=== PATIENT | female | born 1950 | race Caucasian/White ===

== ENCOUNTER 2019-01-24 03:29 | Emergency (ER) | payer MEDICARE, OTHER ==
[~2019-01-24] VITALS: Ht 160 cm; Wt 76.2 kg
[2019-01-24] MEDS ORDERED: NS IV 1000 ML 1,000 ML IV STA ×2 (03:43→05:08)
[2019-01-24] MEDS ORDERED: OSELTAMIVIR 75 MG (TAMIFLU) CAPSULE PO STA (03:44)
[2019-01-24] MEDS ORDERED: VANCOMYCIN INJECTION 1,500 MG in NS IV 500 ML 500 ML IV STA (03:44)
[2019-01-24] MEDS ORDERED: CEFEPIME INJECTION 2,000 MG in WATER (STERILE) FOR INJECTION 20 ML IV STA (03:44)
--- NOTE | 2019-01-24 03:52 | ED General ---
General Chief Complaint: Fever-Adult/Adol Stated Complaint: RAPID HR LOW O2 Source of Information: Patient, Family History of Present Illness Date Seen by Provider: Jan 24, 2019 Time Seen by Provider: 03:36 This is a 68-year-old female with a history of breast cancer on oral chemotherapy, atrial fibrillation, here for generalized weakness since waking up this morning. A fever is incidentally identified upon arrival, patient has not noticed any focal symptoms like cough, vomiting, diarrhea, dysuria, rash, headache. Family has noted however that patient's oxygen saturation at home was in the upper 70s prior to arrival. It is in the 80s on room air at this time without there having been a specific intervention. She's not had focal weakness, numbness, or tingling. No chest pain or shortness of breath. Family points out that patient is being stoic, patient agrees that she does not want to be in the hospital at all, and for this reason history is somewhat limited, patient family also do not know her medication names. Allergies and Home Medications Allergies Coded Allergies: No Known Drug Allergies (Unverified , 01/24/19) Patient Home Medication List Home Medication List Reviewed: Yes Review of Systems Review of Systems Constitutional: see HPI EENTM: no symptoms reported Respiratory: no symptoms reported Cardiovascular: no symptoms reported Gastrointestinal: no symptoms reported Genitourinary: no symptoms reported Musculoskeletal: no symptoms reported Skin: no symptoms reported Psychiatric/Neurological: No Symptoms Reported Hematologic/Lymphatic: No Symptoms Reported Immunological/Allergic: no symptoms reported Past Dvzfgbu-Ahbshl-Dgzkkl Hx Patient Social History Recent Foreign Travel: No Contact w/Someone Who Travel: No Physical Exam-Suspected Sepsis Physical Exam Vital Signs Vital Signs - First Documented Capillary Refill : Height, Weight, BMI Height: '" Weight: lbs. oz. 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 as Tested; No Abnormal Cerebellar Tests Skin: warm/dry Focused Exam Lactate Level 01/24/19 03:45: Lactic Acid Level 0.60 Lactic Acid Level Laboratory Tests Test 01/24/19 03:45 Lactic Acid Level 0.60 MMOL/L (0.50-2.00) Progress/Results/Core Measures Suspected Sepsis SIRS Temperature: Pulse: Respiratory Rate: Laboratory Tests 01/24/19 03:45: White Blood Count 2.0L Blood Pressure / Mean: 01/24/19 03:45: Lactic Acid Level 0.60 Laboratory Tests 01/24/19 03:45: Creatinine 2.53H, INR Comment 2.2H, Platelet Count 245, Total Bilirubin 0.3 Results/Orders Lab Results Laboratory Tests Test 01/24/19 03:45 Range/Units White Blood Count 2.0 L 4.3-11.0 10^3/uL Red Blood Count 3.26 L 4.35-5.85 10^6/uL Hemoglobin 8.2 L 11.5-16.0 G/DL Hematocrit 27 L 35-52 % Mean Corpuscular Volume 82 80-99 FL Mean Corpuscular Hemoglobin 25 25-34 PG Mean Corpuscular Hemoglobin Concent 31 L 32-36 G/DL Red Cell Distribution Width 16.4 H 10.0-14.5 % Platelet Count 245 130-400 10^3/uL Mean Platelet Volume 11.0 H 7.4-10.4 FL Neutrophils (%) (Auto) 1 L 42-75 % Lymphocytes (%) (Auto) 45 H 12-44 % Monocytes (%) (Auto) 50 H 0-12 % Eosinophils (%) (Auto) 1 0-10 % Basophils (%) (Auto) 1 0-10 % Neutrophils # (Auto) 0.0 L 1.8-7.8 X 10^3 Lymphocytes # (Auto) 0.9 L 1.0-4.0 X 10^3 Monocytes # (Auto) 1.0 0.0-1.0 X 10^3 Eosinophils # (Auto) 0.0 0.0-0.3 10^3/uL Basophils # (Auto) 0.0 0.0-0.1 10^3/uL Neutrophils % (Manual) 0 % Lymphocytes % (Manual) 32 % Monocytes % (Manual) 49 % Eosinophils % (Manual) 5 % Basophils % (Manual) 2 % Metamyelocytes % 1 % Myelocytes % 2 % Band Neutrophils 1 % Atypical Lymphocytes 8 % Anisocytosis SLIGHT Prothrombin Time 24.3 H 12.2-14.7 SEC INR Comment 2.2 H 0.8-1.4 Activated Partial Thromboplast Time 55 H 24-35 SEC Sodium Level 138 135-145 MMOL/L Potassium Level 3.8 3.6-5.0 MMOL/L Chloride Level 93 L 98-107 MMOL/L Carbon Dioxide Level 25 21-32 MMOL/L Anion Gap 20 H 5-14 MMOL/L Blood Urea Nitrogen 37 H 7-18 MG/DL Creatinine 2.53 H 0.60-1.30 MG/DL Estimat Glomerular Filtration Rate 19 BUN/Creatinine Ratio 15 Glucose Level 209 H 70-105 MG/DL Lactic Acid Level 0.60 0.50-2.00 MMOL/L Calcium Level 9.2 8.5-10.1 MG/DL Corrected Calcium 9.8 8.5-10.1 MG/DL Total Bilirubin 0.3 0.1-1.0 MG/DL Aspartate Amino Transf (AST/SGOT) 17 5-34 U/L Alanine Aminotransferase (ALT/SGPT) 12 0-55 U/L Alkaline Phosphatase 98 40-136 U/L Troponin T 20 H <=10 NG/L Pro-B-Type Natriuretic Peptide 5601.0 H <75.0 PG/ML Total Protein 6.9 6.4-8.2 GM/DL Albumin 3.3 3.2-4.5 GM/DL My Orders Orders - VERONIKA LEWIS DO Cbc With Automated Diff (01/24/19 03:40) Comprehensive Metabolic Panel (01/24/19 03:40) Blood Culture (01/24/19 03:40) Sputum Culture (01/24/19 03:40) Urinalysis (01/24/19 03:40) Urine Culture (01/24/19 03:40) Protime With Inr (01/24/19 03:40) Partial Thromboplastin Time (01/24/19 03:40) Chest 1 View Ap/Pa Only (01/24/19 03:40) Saline Lock/Iv-Start (01/24/19 03:40) Saline Lock/Iv-Start (01/24/19 03:40) Vital Signs Adult Sepsis Patie Q15M (01/24/19 03:40) O2 (01/24/19 03:40) Remove Rings In Anticipation O (01/24/19 03:40) Lactic Acid Analyzer (01/24/19 03:40) Troponin T (01/24/19 03:43) Probnp Fs (01/24/19 03:43) Ekg Tracing (01/24/19 03:43) Ns Iv 1000 Ml (Sodium Chloride 0.9%) (01/24/19 03:43) Vancomycin Injection (Vancomycin Injecti (01/24/19 03:44) Cefepime Injection (Maxipime Injection) (01/24/19 03:44) Oseltamivir 75 Mg Capsule (Tamiflu 75 (01/24/19 03:44) Manual Differential (01/24/19 03:45) Vancomycin Injection (Vancomycin Injecti (01/24/19 05:04) Ns Iv 1000 Ml (Sodium Chloride 0.9%) (01/24/19 05:08) Vital Signs/I&O 01/24/19 01/24/19 03:38 03:38 Temp 103.5 Pulse 112 Resp 20 B/P (MAP) 117/67 (84) Pulse Ox 91 88 O2 Delivery Nasal Cannula Nasal Cannula O2 Flow Rate 3.00 3.00 Capillary Refill : Progress Note #1: Progress Note Patient has incidental fever. We will treat with acetaminophen and she has not had a dose within the last 6 hours at least. We will carefully fluid resuscitate as she has a history of CHF and her oxygen saturation is already in the 80s on room air however oxygen saturation does improve with nasal cannula oxygen into the mid 90s, and on physical exam she is not obviously volume overloaded currently. We will treat with broad-spectrum antibiotics including vancomycin given she has an indwelling port, and will cover with empiric tamiflu. We will check a lactic acid level, urinalysis and culture, blood cultures before antibiotics, labs, chest x-ray. Anticipate admission. Progress Note #2: Progress Note Patient is neutropenic. Lactate is normal however we can give a second liter bolus as she does not appear to be in acute pulmonary edema. At approximately 5 :10 AM I spoke with the transfer center at where patient has been admitted in the past. We await a call back. Vitals improving, HR between 95 and 105, SpO2 97% on NC. ECG EKG : Comment O3 51: Atrial fibrillation rate of 94. Low voltage and nonspecific T-wave flattening in aVL. Delayed precordial R-wave progression. Diagnostic Imaging Diagonstic Imaging: Xray Comments EP interpretation: Trachea is midline, there is cardiomegaly. Right costophrenic angle is sharp, left costophrenic angle is obscured with possible effusion or infiltrate present on the left side. There is a port present with tip in the right atrium. No pneumothoraces. There are clips present bilaterally in the soft tissues. Reviewed: Reviewed by Me Critical Care Note Critical Care Start Time: 03:52 Stop Time: 04:27 Total Time (minutes) 35 Progress Critical care time is exclusive of time spent on separately billable procedures. Departure Impression Primary Impression: Hypoxia Additional Impressions: Neutropenic fever Renal insufficiency Elevated brain natriuretic peptide (BNP) level Elevated troponin Anemia Disposition: 02 XFER SHT-TRM HOSP Condition: Stable (guarded) Transfer Time Spoke to Accepting Phy: 05:40 Transfer Facility: [facility], accepted by Dr Wesley Jo Method of Transfer: EMS Departure-Patient Inst. Referrals: NO,LOCAL PHYSICIAN (PCP) Primary Care Physician VERONIKA LEWIS DO Jan 24, 2019 03:52
[2019-01-24 04:05] LABS: HEMATOCRIT 27 % (35-52); HEMOGLOBIN 8.2 G/DL (11.5-16.0); LYMPHOCYTES % (AUTO) 45 % (12-44); MEAN CORPUSCULAR HEMOGLOBIN 25 PG (25-34); MEAN CORPUSCULAR HGB CONC 31 G/DL (32-36); MEAN CORPUSCULAR VOLUME 82 FL (80-99); MONOCYTES % (AUTO) 50 % (0-12); NEUTROPHILS % (AUTO) 1 % (42-75); PLATELET COUNT 245 10^3/uL (130-400); RED CELL DISTRIBUTION WIDTH 16.4 % (10.0-14.5)
[2019-01-24 04:06] LABS: BASOPHILS % (AUTO) 1 % (0-10); EOSINOPHILS % (AUTO) 1 % (0-10); LYMPHOCYTES # (AUTO) 0.9 X 10^3 (1.0-4.0)
[2019-01-24 04:28] LABS: INR 2.2 (0.8-1.4); PROTHROMBIN TIME PATIENT 24.3 SEC (12.2-14.7)
[2019-01-24 04:36] LABS: CALCIUM 9.2 MG/DL (8.5-10.1); CREATININE SERUM 2.53 MG/DL (0.60-1.30); POTASSIUM 3.8 MMOL/L (3.6-5.0)
[2019-01-24 04:37] LABS: BILIRUBIN,TOTAL 0.3 MG/DL (0.1-1.0)
[2019-01-24 04:38] LABS: ALBUMIN 3.3 GM/DL (3.2-4.5); TOTAL PROTEIN 6.9 GM/DL (6.4-8.2)
[2019-01-24 05:02] LABS: BAND NEUTROPHILS 1 %; LYMPHOCYTES % (MANUAL) 32 %; MONOCYTES % (MANUAL) 49 %; NEUTROPHILS % (MANUAL) 0 %
[2019-01-24 05:03] LABS: ANISOCYTOSIS SLIGHT; ATYPICAL LYMPHOCYTES 8 %; BASOPHILS % (MANUAL) 2 %; EOSINOPHILS % (MANUAL) 5 %; METAMYELOCYTES % 1 %; MYELOCYTES % 2 %
[2019-01-24] MEDS ORDERED: VANCOMYCIN 1000 MG/VIAL ONE (05:04)
[2019-01-24 06:09] VITALS: BP 132/52
[2019-01-24 06:35] LABS: BILIRUBIN,URINE NEGATIVE (NEGATIVE); CLARITY,URINE CLEAR; COLOR,URINE YELLOW; GLUCOSE, URINE (UA) 1+ (NEGATIVE); KETONES,URINE NEGATIVE (NEGATIVE); LEUKOCYTE ESTERASE ,URINE NEGATIVE (NEGATIVE); NITRITE,URINE NEGATIVE (NEGATIVE); PH,URINE 7.5 (5-9); PROTEIN,URINE 1+ (NEGATIVE); UROBILINOGEN,URINE 0.2 MG/DL (NORMAL)
[2019-01-24 06:36] LABS: BACTERIA,URINE NEGATIVE /HPF; RBC,URINE 0-2 /HPF; SQUAMOUS EPITHELIAL CELL,UR 0-2 /HPF
--- NOTE | 2019-01-24 06:42 | Diagnostic Imaging Report ---
INDICATION: Hypoxia, cough COMPARISON: None FINDINGS: Single view of the chest demonstrates cardiac enlargement without overt pulmonary edema. There is small effusion and atelectasis in the left base. Right lung is clear. The Port-A-Cath is in good position. No pneumothorax is seen. IMPRESSION: 1. Cardiac enlargement without pulmonary edema 2. Small effusion and atelectasis in the left base. Followup recommended. Dictated by: Dictated on workstation # [id number]
--- NOTE | 2019-01-24 07:00 | NUR ---
Report from Nicole SALCEDO, pt ready for transfer, await EMS. [facility] report will be here shortly to transfer.
[2019-01-24 07:30] VITALS: BP 127/49
--- NOTE | 2019-01-24 07:30 | NUR ---
[facility] depart at this time.
--- NOTE | 2019-01-24 08:00 | NUR ---
Called report to [facility]. ETA updated.
== END 2019-01-24 07:30 | disposition short-term general hospital (02) ==
LOC: ER FS 03:34
DX: R09.02 Hypoxemia (principal); D70.9 Neutropenia, unspecified; N28.9 Disorder of kidney and ureter, unspecified; R79.89 Other specified abnormal findings of blood chemistry; D64.9 Anemia, unspecified; I48.91 Unspecified atrial fibrillation; C50.919 Malignant neoplasm of unspecified site of unspecified female breast; Z99.81 Dependence on supplemental oxygen
CPT/HCPCS: 36415; 36556; 71045; 80053; 81000; 83605; 83880; 84484; 85007; 85027; 85610; 85730; 87040; 87088; 93005

== ENCOUNTER 2019-02-28 18:26 | Emergency (ER) | payer MEDICARE, OTHER ==
[~2019-02-28] VITALS: Ht 160 cm; Wt 73.9 kg
[2019-02-28] MEDS ORDERED: NS IV 500 ML 500 ML IV ONE (19:08)
--- NOTE | 2019-02-28 19:17 | ED General ---
General Chief Complaint: Respiratory Problems Stated Complaint: DIZZINESS/SOB/WEAKNESS Nursing Triage Note: Woke up this morning at 10 a.m. and since that time has been short of breath with exertion and dizzy. States she had similar symptoms in January and had fluid on her lungs and around her heart. Does have hx of CHF and afib. Is on chemo and had last treatment 2 weeks ago. Nursing Sepsis Screen: No Definite Risk Source of Information: Patient, Family Exam Limitations: No Limitations History of Present Illness Date Seen by Provider: Feb 28, 2019 Time Seen by Provider: 18:45 Initial Comments Pt to the ER by private conveyance with waking this AM with SOA, malaise, tired and weak. No vertigo or near syncope. She noted that yesterday she was late taking her meds and her A. Fib was labile 90-130 bpm. Today she felt tired. a few weeks ago she had an occult infection with low WBC and was sent to [facility] where her PCP is and was given a shot to inc her WBC. She is on [facility] from [facility] for left breast Ca. while they did not find a source she completed a course of abx and felt better and went home. Plan was to get a repeat lab study done today outpt for her PCP. She did not feel up to it today but later went in to urgent care and was redirected to the ER. She has exertional Dyspnea mild to mod but no CP, M/V/Fever, chills, diarrhea, dysuria. Allergies and Home Medications Allergies Coded Allergies: No Known Drug Allergies (Unverified , 02/28/19) Patient Home Medication List Home Medication List Reviewed: Yes Review of Systems Review of Systems Constitutional: No chills, No diaphoresis; dizziness (non vertiginous and non syncopal, Just Lightheaded); No fever; malaise, weakness EENTM: No ear discharge, No ear pain Respiratory: No cough, No phlegm; short of breath (exertional); No wheezing Cardiovascular: No chest pain, No palpitations, No syncope Gastrointestinal: No abdominal pain, No constipation Genitourinary: No discharge, No dysuria Musculoskeletal: No back pain, No joint pain Psychiatric/Neurological: Denies Anxiety, Denies Depressed Hematologic/Lymphatic: See HPI, Anemia Past Dhmbten-Gkmttm-Rngueq Hx Patient Social History Alcohol Use: Denies Use Recreational Drug Use: No Smoking Status: Never a Smoker 2nd Hand Smoke Exposure: No Recent Foreign Travel: No Contact w/Someone Who Travel: No Recent Infectious Disease Expo: No Recent Hopitalizations: No Physical Abuse: No Sexual Abuse: No Mistreated: No Seasonal Allergies Seasonal Allergies: No Past Medical History Surgeries: Yes (mastectomy) Respiratory: No Cardiac: Yes (CHF; ) Atrial Fibrillation, Irregular Heartbeat Neurological: No HEENT: No Cancer: No Psychosocial: No Integumentary: No Physical Exam Vital Signs Vital Signs - First Documented 02/28/19 19:02 Temp 97.5 Pulse 102 Resp 20 B/P (MAP) 141/64 (89) Pulse Ox 100 Capillary Refill : Less Than 3 Seconds Height, Weight, BMI Height: 5'3.00" Weight: 163lbs. oz. 73.553488az; BMI Method:Stated General Appearance: No Apparent Distress, WD/WN Eyes: Bilateral Eye Normal Inspection, Bilateral Eye PERRL, Bilateral Eye EOMI HEENT: PERRL/EOMI, TMs Normal, Normal ENT Inspection, Pharynx Normal, Moist Mucous Membranes, Other (dentures upper and lowers) Neck: Full Range of Motion, Normal Inspection, Non Tender, Supple Respiratory: Chest Non Tender, Lungs Clear, Normal Breath Sounds, No Accessory Muscle Use, No Respiratory Distress, Other (left breasts surgically removed) Cardiovascular: Regular Rate, Rhythm, No Edema, Normal Peripheral Pulses Gastrointestinal: Normal Bowel Sounds, No Organomegaly, Non Tender, Soft Extremity: Normal Capillary Refill, Normal Inspection, Normal Range of Motion, Non Tender, No Calf Tenderness, No Pedal Edema Neurologic/Psychiatric: Alert, Oriented x3, No Motor/Sensory Deficits, Other ( normal gait) Skin: Normal Color, Warm/Dry Progress/Results/Core Measures Suspected Sepsis Recent Fever Within 48 Hours: No Infection Criteria Present: None New/Unexplained Altered Menta: No Sepsis Screen: No Definite Risk SIRS Temperature:97.5 Pulse: 102 Respiratory Rate: 20 Laboratory Tests 02/28/19 19:37: White Blood Count 8.3 Blood Pressure 141 /64 Mean: 89 Laboratory Tests 02/28/19 19:37: Creatinine 1.65H, Platelet Count 131, Total Bilirubin 0.3 Results/Orders Lab Results Laboratory Tests Test 02/28/19 19:37 02/28/19 20:20 Range/Units White Blood Count 8.3 4.3-11.0 10^3/uL Red Blood Count 2.90 L 4.35-5.85 10^6/uL Hemoglobin 7.5 L 11.5-16.0 G/DL Hematocrit 24 L 35-52 % Mean Corpuscular Volume 84 80-99 FL Mean Corpuscular Hemoglobin 26 25-34 PG Mean Corpuscular Hemoglobin Concent 31 L 32-36 G/DL Red Cell Distribution Width 18.1 H 10.0-14.5 % Platelet Count 131 130-400 10^3/uL Mean Platelet Volume 11.4 H 7.4-10.4 FL Neutrophils (%) (Auto) 62 42-75 % Lymphocytes (%) (Auto) 24 12-44 % Monocytes (%) (Auto) 11 0-12 % Eosinophils (%) (Auto) 2 0-10 % Basophils (%) (Auto) 0 0-10 % Neutrophils # (Auto) 5.2 1.8-7.8 X 10^3 Lymphocytes # (Auto) 2.0 1.0-4.0 X 10^3 Monocytes # (Auto) 0.9 0.0-1.0 X 10^3 Eosinophils # (Auto) 0.2 0.0-0.3 10^3/uL Basophils # (Auto) 0.0 0.0-0.1 10^3/uL D-Dimer 0.69 H 0.00-0.49 UG/ML Sodium Level 142 135-145 MMOL/L Potassium Level 3.1 L 3.6-5.0 MMOL/L Chloride Level 96 L 98-107 MMOL/L Carbon Dioxide Level 29 21-32 MMOL/L Anion Gap 17 H 5-14 MMOL/L Blood Urea Nitrogen 49 H 7-18 MG/DL Creatinine 1.65 H 0.60-1.30 MG/DL Estimat Glomerular Filtration Rate 31 BUN/Creatinine Ratio 30 Glucose Level 155 H 70-105 MG/DL Calcium Level 8.7 8.5-10.1 MG/DL Corrected Calcium 8.9 8.5-10.1 MG/DL Magnesium Level 2.0 1.8-2.4 MG/DL Total Bilirubin 0.3 0.1-1.0 MG/DL Aspartate Amino Transf (AST/SGOT) 23 5-34 U/L Alanine Aminotransferase (ALT/SGPT) 12 0-55 U/L Alkaline Phosphatase 81 40-136 U/L Troponin T 13 H <=10 NG/L Pro-B-Type Natriuretic Peptide 1282.0 H <75.0 PG/ML Total Protein 6.7 6.4-8.2 GM/DL Albumin 3.7 3.2-4.5 GM/DL Urine Color YELLOW Urine Clarity CLEAR Urine pH 6.5 5-9 Urine Specific [place] <1.005 1.016-1.022 Urine Protein NEGATIVE NEGATIVE Urine Glucose (UA) NEGATIVE NEGATIVE Urine Ketones NEGATIVE NEGATIVE Urine Nitrite NEGATIVE NEGATIVE Urine Bilirubin NEGATIVE NEGATIVE Urine Urobilinogen 0.2 NORMAL MG/DL Urine Leukocyte Esterase NEGATIVE NEGATIVE Urine RBC (Auto) TRACE H NEGATIVE Urine RBC NONE /HPF Urine WBC NONE /HPF Urine Squamous Epithelial Cells 0-2 /HPF Urine Crystals NONE /LPF Urine Bacteria NONE /HPF Urine Casts PRESENT /LPF Urine Hyaline Casts 0-2 H /LPF Urine Mucus NEGATIVE /LPF Urine Culture Indicated CULTURE PENDING My Orders Orders - GLO COREY Ekg Tracing (02/28/19 18:30) Continuous Ekg Monitoring (02/28/19 18:30) Cbc With Automated Diff (02/28/19 19:08) Ed Iv/Invasive Line Start (02/28/19:08) Ns Iv 500 Ml (Sodium Chloride 0.9%) (02/28/19 19:08) Ua Culture If Indicated (02/28/19 19:08) Chest Pa/Lat (2 View) (02/28/19 19:08) Probnp Fs (02/28/19 19:08) Orthostatic Vital Signs (Adult (02/28/19 19:12) Urine Culture (02/28/19 19:45) Fibrin Degradation Products (02/28/19 19:48) Comprehensive Metabolic Panel (02/28/19 19:37) Magnesium (02/28/19 19:37) Troponin T (02/28/19 19:37) Troponin T (02/28/19 21:30) Medications Given in ED Current Medications Medications Dose Ordered Sig/Puma Route Start Time Stop Time Status Last Admin Dose Admin Sodium Chloride 500 ml @ 0 mls/hr Q0M ONCE IV 02/28/19 19:08 02/28/19 19:12 DC 02/28/19 19:48 999 MLS/HR Vital Signs/I&O 02/28/19 19:02 Temp 97.5 Pulse 102 Resp 20 B/P (MAP) 141/64 (89) Pulse Ox 100 Capillary Refill : Less Than 3 Seconds Blood Pressure Mean: 89 Progress Note : Time: 19:41 Progress Note We will obtain a CBC, CMP and chest x-ray. Her throat looks fine so I don't think a rapid strep or influenza are indicated that she's not having any story symptoms. Her shortness of breath could be due to an anemia. Last time she was in this ER before being shipped to her white count was 2.0 and hemoglobin is 8.2 with a 245,000 platelet count. She has chronic kidney dysfunction stage IV based on her previous labs and her BNP was 5600 and her troponin T was barely elevated at 20. We'll repeat a BNP over she does not have any JVD, wet sounding lungs or pedal edema of any significance. Plan to culture the urine. We'll obtain orthostatics and start with a half liter saline as she does appear to be marginally dry on clinical exam. She uses Lasix to control her CHF. I only have one to point for her BNP and no echocardiogram or mention of ejection fraction. Wells criteria for ulnar embolism is 2.5 points which is moderate risk. We can get a d-dimer age adjusted to 0.7 her below however the patient's chronic kidney disease prevents her from doing CT angiogram. She is not having any chest pain and her heart rate is running in the 90-110 range because of her atrial fibrillation So her well's score estimation of pulmonary embolism risk may be artificially inflated. ECG Initial ECG Impression Date: Feb 28, 2019 Initial ECG Impression Time: 18:37 Initial ECG Rate: 98 Initial ECG Rhythm: A Fib/Flutter Initial ECG Intervals: QT (477) Initial ECG Impression: Atrial Fibrillation Initial ECG Comparisson: Unchanged Comment No significant ST elevation or depression. Diagnostic Imaging Diagonstic Imaging: Xray Plain Films/CT/US/NM/MRI: chest (2v) Comments NAME: AYE [facility] REC#: [id number] PT STATUS: REG ER : 1950 PHYSICIAN: GLO COREY MD ADMIT DATE: 02/28/19/ER FS Signed Date of Exam:02/28/19 CHEST PA/LAT (2 VIEW) INDICATION: Shortness of breath and dizziness. COMPARISON: Comparison is made with a prior study from January 24, 2019. FINDINGS: Enlargement of the cardiac silhouette again demonstrated and not significantly changed allowing for differences in AP and PA technique. There is a right internal jugular port, and there are surgical clips in the left axilla. The lungs demonstrate no focal alveolar consolidation or evidence of a significant effusion. There is no pneumothorax. No acute or suspicious osseous abnormality evident. IMPRESSION: 1. Enlarged cardiac silhouette without radiographic evidence of current failure. No focal alveolar consolidation or significant effusion demonstrated. Dictated by: Dictated on workstation # [id number] Dict: 02/28/191947 Trans: 02/28/191951 [id number] Interpreted by: NAPOLEON BRUNNER MD Electronically signed by: NAPOLEON BRUNNER MD 02/28/191951 Reviewed: Reviewed by Me Departure Impression Primary Impression: Anemia Qualified Codes: D64.9 - Anemia, unspecified Additional Impressions: Atrial fibrillation, chronic History of breast cancer in female Disposition: 01 HOME, SELF-CARE Condition: Stable Departure-Patient Inst. Decision time for Depature: 22:35 Referrals: NO,LOCAL PHYSICIAN (PCP/Family) Primary Care Physician Patient Instructions: Normocytic Normochromic Anemia (DC) Add. Discharge Instructions: Follow-up this week with your cancer doctor to discuss your anemia. Your white cell count is 8 which is good however your borderline needing a transfusion for your low hemoglobin of 7.5. A repeat test next week with private be in order as long as you're symptoms do not significantly worsen. If you begin to have severe chest pain, rapid heart rate or other worrisome symptoms return to the ER nearest you for further workup. All discharge instructions reviewed with patient and/or family. Voiced understanding. GLO COREY Feb 28, 2019 19:17
--- NOTE | 2019-02-28 19:54 | Diagnostic Imaging Report ---
INDICATION: Shortness of breath and dizziness. COMPARISON: Comparison is made with a prior study from January 24, 2019. FINDINGS: Enlargement of the cardiac silhouette again demonstrated and not significantly changed allowing for differences in AP and PA technique. There is a right internal jugular port, and there are surgical clips in the left axilla. The lungs demonstrate no focal alveolar consolidation or evidence of a significant effusion. There is no pneumothorax. No acute or suspicious osseous abnormality evident. IMPRESSION: 1. Enlarged cardiac silhouette without radiographic evidence of current failure. No focal alveolar consolidation or significant effusion demonstrated. Dictated by: Dictated on workstation # [id number]
[2019-02-28 20:13] LABS: WHITE BLOOD COUNT 8.3 10^3/uL (4.3-11.0)
[2019-02-28 20:14] LABS: BASOPHILS % (AUTO) 0 % (0-10); EOSINOPHILS # (AUTO) 0.2 10^3/uL (0.0-0.3); EOSINOPHILS % (AUTO) 2 % (0-10); HEMATOCRIT 24 % (35-52); HEMOGLOBIN 7.5 G/DL (11.5-16.0); LYMPHOCYTES % (AUTO) 24 % (12-44); MEAN CORPUSCULAR HEMOGLOBIN 26 PG (25-34); MEAN CORPUSCULAR HGB CONC 31 G/DL (32-36); MEAN CORPUSCULAR VOLUME 84 FL (80-99); MEAN PLATELET VOLUME 11.4 FL (7.4-10.4); MONOCYTES # (AUTO) 0.9 X 10^3 (0.0-1.0); MONOCYTES % (AUTO) 11 % (0-12); NEUTROPHILS # (AUTO) 5.2 X 10^3 (1.8-7.8); NEUTROPHILS % (AUTO) 62 % (42-75); PLATELET COUNT 131 10^3/uL (130-400); RED CELL DISTRIBUTION WIDTH 18.1 % (10.0-14.5)
[2019-02-28 20:15] VITALS: BP_SYST 111; BP_SYST 125; BP_SYST 130; BP_DIAS 45; BP_DIAS 50; BP_DIAS 60
[2019-02-28 20:42] LABS: POTASSIUM 3.1 MMOL/L (3.6-5.0)
[2019-02-28 20:43] LABS: ALBUMIN 3.7 GM/DL (3.2-4.5); BILIRUBIN,TOTAL 0.3 MG/DL (0.1-1.0); CALCIUM 8.7 MG/DL (8.5-10.1); CREATININE SERUM 1.65 MG/DL (0.60-1.30); TOTAL PROTEIN 6.7 GM/DL (6.4-8.2)
[2019-02-28 22:24] LABS: CLARITY,URINE CLEAR; COLOR,URINE YELLOW; GLUCOSE, URINE (UA) NEGATIVE (NEGATIVE); KETONES,URINE NEGATIVE (NEGATIVE); NITRITE,URINE NEGATIVE (NEGATIVE); PH,URINE 6.5 (5-9); PROTEIN,URINE NEGATIVE (NEGATIVE)
[2019-02-28 22:25] LABS: BILIRUBIN,URINE NEGATIVE (NEGATIVE); HYALINE CASTS, URINE 0-2 /LPF; LEUKOCYTE ESTERASE ,URINE NEGATIVE (NEGATIVE); SQUAMOUS EPITHELIAL CELL,UR 0-2 /HPF; UROBILINOGEN,URINE 0.2 MG/DL (NORMAL)
[2019-02-28] MEDS ORDERED: HEParin (CENTRAL IV FLUSH) 500 UNIT/5 ML SYR ONE (22:43)
[2019-02-28 22:56] VITALS: BP 124/60
[2019-02-28] MEDS ORDERED: HEParin (CENTRAL IV FLUSH) 500 UNIT/5 ML SYR IV ONE (23:00)
== END 2019-02-28 22:56 | disposition home or self-care (01) ==
LOC: EDUNIT# 18:26 → ER FS 18:29
DX: D64.9 Anemia, unspecified (principal); I48.91 Unspecified atrial fibrillation; I50.9 Heart failure, unspecified; Z85.3 Personal history of malignant neoplasm of breast
CPT/HCPCS: 36415; 71046; 80053; 81000; 83735; 83880; 84484; 85025; 85379; 87088; 93005; 96374

== ENCOUNTER → 2019-06-21 | Outpatient (CLI) | payer MEDICARE, OTHER ==
--- NOTE | 2019-06-21 13:56 | Diagnostic Imaging Report ---
PROCEDURE: CT urinary tract, rule out kidney stone. TECHNIQUE: Multiple contiguous axial images were obtained through the abdomen and pelvis without the use of intravenous contrast. Auto Exposure Controls were utilized during the CT exam to meet ALARA standards for radiation dose reduction. INDICATION: Dysuria. COMPARISON: No prior studies are available for comparison. FINDINGS: The heart is enlarged. There is a small to moderate pericardial effusion. There are also small right and trace left pleural effusions. There appears to be some atelectasis or scarring in the left lower lobe. The liver and gallbladder are unremarkable. No liver mass is seen. There is no biliary ductal dilatation. The pancreas and spleen are unremarkable. No adrenal mass is detected. No definite renal calculus or hydronephrosis is detected. The aorta is nonaneurysmal. The bladder does show some generalized wall thickening which can be seen with cystitis. No bladder gas is identified. No ureteral dilatation or ureteral calculi are identified. The bowel loops are of normal caliber. There is no obstruction. The appendix is unremarkable. There is no ascites. The uterus is unremarkable. The bony structures demonstrate a fracture of the right pubic body with some callus formation although the fracture line does remain visible. There may be healed bilateral sacral alar insufficiency fractures. IMPRESSION: 1. Cardiomegaly with moderate pericardial effusion and bilateral pleural effusions, right greater. 2. No evidence of urinary tract calculi or obstruction. There is moderate bladder wall thickening present. While this could be in part secondary to incomplete distention, the possibility of cystitis cannot be excluded. 3. Healing pelvic fractures. Dictated by: Dictated on workstation # [id number]
== END ==
LOC: RAD FS 12:36
PROVIDERS: ATTEND Nurse Practitioner Family
DX: N32.89 Other specified disorders of bladder (principal); S32.9XXD Fracture of unspecified parts of lumbosacral spine and pelvis, subsequent encounter for fracture with routine healing; I51.7 Cardiomegaly; I31.3 Pericardial effusion (noninflammatory); J90 Pleural effusion, not elsewhere classified
CPT/HCPCS: 74176

== ENCOUNTER 2020-02-20 13:59 | Emergency (ER) | payer MEDICARE, OTHER ==
[~2020-02-20] VITALS: Ht 167.7 cm; Wt 91.0 kg
--- NOTE | 2020-02-20 14:02 | NUR ---
Pt arrived POV from her PCP. Pt lethargic, pale and diaphoretic. Pt taken to rm 6 via wc.
--- NOTE | 2020-02-20 14:09 | ED GI ---
General Chief Complaint: Abdominal/GI Problems Stated Complaint: VOMITING; DIARRHEA; LEG CRAMPS Exam Limitations: No Limitations History of Present Illness Date Seen by Provider: Feb 20, 2020 Time Seen by Provider: 14:08 Initial Comments 69-year-old female presents with vomiting diarrhea leg cramps. Patient presented to her primary care provider. Due to current covid cautions, they went to check her fever in the car. There they noted she was extremely sick afebrile so they sent her to the ER. Upon arrival to the ER, patient was decreased responsive but would answer questions appropriately. Patient was complaining of back pain. She also reports that she has a history of breast cancer. Subjective report of fever. No other history of present illness was available Allergies and Home Medications Allergies Coded Allergies: No Known Drug Allergies (Unverified , 02/28/19) Patient Home Medication List Home Medication List Reviewed: Yes Review of Systems Review of Systems Constitutional: see HPI Gastrointestinal: See HPI Past Sgcntpc-Aiihim-Nfcnmf Hx Past Med/Social Hx: Reviewed Nursing Past Med/Soc Hx Patient Social History 2nd Hand Smoke Exposure: No Recent Foreign Travel: No Contact w/Someone Who Travel: No Recent Hopitalizations: No Seasonal Allergies Seasonal Allergies: No Past Medical History Surgeries: Yes (mastectomy) Respiratory: No Cardiac: Yes (CHF; ) Atrial Fibrillation, Irregular Heartbeat Neurological: No HEENT: No Cancer: No Psychosocial: No Integumentary: No Physical Exam Vital Signs Capillary Refill : Height/Weight/BMI Height: 5'3.00" Weight: 163lbs. oz. 73.769358fo; BMI Method:Stated General Appearance: other (lethargic but responds to questions appropriately ) Respiratory: lungs clear, normal breath sounds Cardiovascular: bradycardia (extreme bradycardia) Gastrointestinal: soft Extremities: normal range of motion Neurologic/Psychiatric: oriented x 3 Skin: normal color Focused Exam Lactate Level 02/20/20 14:30: Lactic Acid Level 7.29*H Lactic Acid Level Laboratory Tests Test 02/20/20 14:30 Lactic Acid Level 7.29 MMOL/L (0.50-2.00) *H Progress/Results/Core Measures Results/Orders Lab Results Laboratory Tests Test 02/20/20 14:18 02/20/20 14:30 02/20/20 14:42 Range/Units White Blood Count 13.8 H 4.3-11.0 10^3/uL Red Blood Count 5.07 4.35-5.85 10^6/uL Hemoglobin 12.6 11.5-16.0 G/DL Hematocrit 40 35-52 % Mean Corpuscular Volume 80 80-99 FL Mean Corpuscular Hemoglobin 25 25-34 PG Mean Corpuscular Hemoglobin Concent 31 L 32-36 G/DL Red Cell Distribution Width 16.3 H 10.0-14.5 % Platelet Count 140 130-400 10^3/uL Mean Platelet Volume 10.7 H 7.4-10.4 FL Neutrophils (%) (Auto) 59 42-75 % Lymphocytes (%) (Auto) 28 12-44 % Monocytes (%) (Auto) 12 0-12 % Eosinophils (%) (Auto) 1 0-10 % Basophils (%) (Auto) 1 0-10 % Neutrophils # (Auto) 8.1 H 1.8-7.8 X 10^3 Lymphocytes # (Auto) 3.9 1.0-4.0 X 10^3 Monocytes # (Auto) 1.6 H 0.0-1.0 X 10^3 Eosinophils # (Auto) 0.1 0.0-0.3 10^3/uL Basophils # (Auto) 0.1 0.0-0.1 10^3/uL Prothrombin Time 30.7 H 12.2-14.7 SEC INR Comment 2.8 H 0.8-1.4 Activated Partial Thromboplast Time 48 H 24-35 SEC Sodium Level 140 135-145 MMOL/L Potassium Level 8.2 *H 3.6-5.0 MMOL/L Chloride Level 107 98-107 MMOL/L Carbon Dioxide Level 15 L 21-32 MMOL/L Anion Gap 18 H 5-14 MMOL/L Blood Urea Nitrogen 43 H 7-18 MG/DL Creatinine 3.63 H 0.60-1.30 MG/DL Estimat Glomerular Filtration Rate 12 BUN/Creatinine Ratio 12 Glucose Level 161 H 70-105 MG/DL Calcium Level 8.8 8.5-10.1 MG/DL Corrected Calcium 9.0 8.5-10.1 MG/DL Total Bilirubin 0.4 0.1-1.0 MG/DL Aspartate Amino Transf (AST/SGOT) 40 H 5-34 U/L Alanine Aminotransferase (ALT/SGPT) 30 0-55 U/L Alkaline Phosphatase 98 40-136 U/L Troponin I < 0.30 <0.30 NG/ML Total Protein 7.2 6.4-8.2 GM/DL Albumin 3.8 3.2-4.5 GM/DL Lactic Acid Level 7.29 *H 0.50-2.00 MMOL/L Urine Color YELLOW Urine Clarity CLEAR Urine pH 6.0 5-9 Urine Specific [place] >1.030 1.016-1.022 Urine Protein 2+ H NEGATIVE Urine Glucose (UA) NEGATIVE NEGATIVE Urine Ketones NEGATIVE NEGATIVE Urine Nitrite NEGATIVE NEGATIVE Urine Bilirubin NEGATIVE NEGATIVE Urine Urobilinogen 0.2 < = 1.0 MG/DL Urine Leukocyte Esterase NEGATIVE NEGATIVE Urine RBC (Auto) TRACE H NEGATIVE Urine RBC 2-5 H /HPF Urine WBC RARE /HPF Urine Squamous Epithelial Cells 2-5 /HPF Urine Crystals PRESENT H /LPF Urine Amorphous Sediment MOD DEBBIE URATES H /LPF Urine Bacteria NONE /HPF Urine Casts PRESENT /LPF Urine Hyaline Casts 2-5 H /LPF Urine Mucus NEGATIVE /LPF Urine Culture Indicated NO My Orders Orders - MORRELL,BRIE L DO Cbc With Automated Diff (02/20/20 14:12) Comprehensive Metabolic Panel (02/20/20 14:12) Blood Culture (02/20/20 14:12) Urinalysis (02/20/20 14:12) Urine Culture (02/20/20 14:12) Protime With Inr (02/20/20 14:12) Partial Thromboplastin Time (02/20/20 14:12) Ed Iv/Invasive Line Start (02/20/20 14:12) Vital Signs Adult Sepsis Patie Q15M (02/20/20 14:12) O2 (02/20/20 14:12) Remove Rings In Anticipation O (02/20/20 14:12) Lactic Acid Analyzer (02/20/20 14:12) Ns Iv 1000 Ml (Sodium Chloride 0.9%) (02/20/20 14:12) Cefepime Injection (Maxipime Injection) (02/20/20 14:15) Acute Abd Series (02/20/20 14:12) Ekg Tracing (02/20/20 14:15) Troponin I Fs (02/20/20 14:15) Fentanyl Injection (Sublimaze Injection (4/6/20 14:19) Lorazepam Injection (Ativan Injection) (02/20/20 14:20) Calcium Chloride 10% Injection (Calcium (02/20/20 15:15) Accucheck Stat ONCE (02/20/20 15:03) Insulin (Regular) Human (Humulin R (Per (02/20/20 15:15) D50w (Emergency) Syringe (Dextrose 50% 5 (02/20/20 15:15) D5 1/2 Ns 1000 Ml Iv Solution (Dextrose (02/20/20 15:15) Progress Progress Note : Time: 15:11 Progress Note Patient was extremely bradycardic with heart rates 10-20. Patient was given 0.5 mg atropine, an amp of calcium chloride, an amp of sodium bicarbonate followed by an additional amp of calcium chloride and sodium bicarbonate. Patient was initially placed in the heart rate of the 70s with external pacer. Patient then spontaneously converted to atrial fibrillation heart rate in the 60s. Patient's heart rate had a second episode of bradycardia that improved with the second calcium chloride, she was then given 10 units IV insulin with one amp of D50, D5 half-normal running 150 miles an hour in addition to her other normal saline. She was given an additional third amp of sodium bicarbonate. Patient's heart rate then stabilized once again into the atrial fib heart rate around 100 with good blood pressures in the 140s pulse oxes in the upper 90s. Patient was much more alert and awake. Patient will be transferred to [facility] by helicopter with accepting doctor CONOR Belcher Departure Impression Primary Impression: Hyperkalemia Additional Impressions: Bradycardia Nausea & vomiting Qualified Codes: R11.2 - Nausea with vomiting, unspecified Atrial fibrillation Qualified Codes: I48.91 - Unspecified atrial fibrillation Disposition: T-[facility] Condition: Improved Transfer Transfer Reason: Exceeds level of care Time Spoke to Accepting Phy: 15:00 Transfer Facility: [facility] Method of Transfer: Air Departure-Patient Inst. Referrals: DEANNA FARLEY DO (PCP/Family) Primary Care Physician BRIE MORRELL DO Feb 20, 2020 14:08
[2020-02-20] MEDS ORDERED: NS IV 1000 ML 1,000 ML IV SCH (14:12)
[2020-02-20] MEDS ORDERED: CEFEPIME INJECTION 1,000 MG in WATER (STERILE) FOR INJECTION 10 ML IV ONE (14:15)
[2020-02-20] MEDS ORDERED: fentaNYL INJECTION 100 MCG/2 ML AMP ONE (14:19)
[2020-02-20] MEDS ORDERED: LORazepam INJ 2 MG/ML (ATIVAN) VIAL ONE (14:20)
--- OUTSIDE RECORDS SUMMARY | 2020-02-20 14:47 | XMS REPORT | Continuity of Care Document ---
Author Organization Unknown Address Unknown Phone Unavailable Allergies Active Description Code Type Severity Reaction Onset Reported/Identified Relationship to Patient Clinical Status Yes No Known Drug Allergies [id number] Drug Allergy Unknown N/A 02/28/2019 Medications There is no data. 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 9 ANEMIA, UNSPECIFIED 01/24/2019 DEBBIE MUKHERJEE, VERONIKA T Ot D70. 9 NEUTROPENIA, UNSPECIFIED 01/24/2019 DEBBIE MUKHERJEE, VERONIKA T Ot I48. 91 UNSPECIFIED ATRIAL FIBRILLATION 01/24/2019 DEBBIE MUKHERJEE, VERONIKA T Ot N28. 9 DISORDER OF KIDNEY AND URETER, UNSPECIFI 01/24/2019 DEBBIE MUKHERJEE, VERONIKA T Ot R09. 02 HYPOXEMIA 01/24/2019 DEBBIE MUKHERJEE, VERONIKA T Ot R53. 1 WEAKNESS 01/24/2019 DEBBIE MUKHERJEE, VERONIKA T Ot R79. 89 OTHER SPECIFIED ABNORMAL FINDINGS OF BLO 01/24/2019 DEBBIE MUKHERJEE, VERONIKA T Ot Z99. 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 9 ANEMIA, UNSPECIFIED 01/26/2019 DEBBIE MUKHERJEE, VERONIKA T Ot D70. 9 NEUTROPENIA, UNSPECIFIED 01/26/2019 DEBBIE MUKHERJEE, VERONIKA T Ot I48. 91 UNSPECIFIED ATRIAL FIBRILLATION 01/26/2019 DEBBIE MUKHERJEE, VERONIKA T Ot N28. 9 DISORDER OF KIDNEY AND URETER, UNSPECIFI 01/26/2019 DEBBIE MUKHERJEE, VERONIKA T Ot R09. 02 HYPOXEMIA 01/26/2019 DEBBIE MUKHERJEE, VERONIKA T Ot R53. 1 WEAKNESS 01/26/2019 DEBBIE MUKHERJEE, VERONIKA T Ot R79. 89 OTHER SPECIFIED ABNORMAL FINDINGS OF BLO 01/26/2019 DEBBIE MUKHERJEE, VERONIKA T Ot Z99. 81 DEPENDENCE ON SUPPLEMENTAL OXYGEN 02/28/2019 LEORA KINCAID, GLO J Ot D64. 9 ANEMIA, UNSPECIFIED 02/28/2019 LEORA KINCAID, GLO J Ot I48. 91 UNSPECIFIED ATRIAL FIBRILLATION 02/28/2019 LEORA KINCAID, GLO J Ot I50. 9 HEART FAILURE, UNSPECIFIED 02/28/2019 LEORA KINCAID, GLO J Ot R42 DIZZINESS AND GIDDINESS 02/28/2019 LEORA KINCAID, GLO J Ot Z85. 3 PERSONAL HISTORY OF MALIGNANT NEOPLASM O 03/02/2019 LEORA KINCAID, GLO J Ot D64. 9 ANEMIA, UNSPECIFIED 03/02/2019 LEORA KINCAID, GLO J Ot I48. 91 UNSPECIFIED ATRIAL FIBRILLATION 03/02/2019 LEORA KINCAID, GLO J Ot I50. 9 HEART FAILURE, UNSPECIFIED 03/02/2019 LEORA KINCAID, GLO J Ot R42 DIZZINESS AND GIDDINESS 03/02/2019 LEORA KINCAID, GLO J Ot Z85. 3 PERSONAL HISTORY OF MALIGNANT NEOPLASM O 06/27/2019 LESLIE VO MAMMOGRAPHY TECHNICIAN Ot I31. 3 PERICARDIAL EFFUSION (NONINFLAMMATORY) 06/27/2019 LESLIE VO MAMMOGRAPHY TECHNICIAN Ot I51. 7 CARDIOMEGALY 06/27/2019 LESLIE VO MAMMOGRAPHY TECHNICIAN Ot J90 PLEURAL EFFUSION, NOT ELSEWHERE CLASSIFI 06/27/2019 LESLIE VO MAMMOGRAPHY TECHNICIAN Ot N32. 89 OTHER SPECIFIED DISORDERS OF BLADDER 06/27/2019 LESLIE VO MAMMOGRAPHY TECHNICIAN Ot S32.9XXD FX UNSP PARTS OF LUMBOSACR SPIN PELV, 06/28/2019 LESLIE VO MAMMOGRAPHY TECHNICIAN Ot I31. 3 PERICARDIAL EFFUSION (NONINFLAMMATORY) 06/28/2019 LESLIE VO MAMMOGRAPHY TECHNICIAN Ot I51. 7 CARDIOMEGALY 06/28/2019 LESLIE VO MAMMOGRAPHY TECHNICIAN Ot J90 PLEURAL EFFUSION, NOT ELSEWHERE CLASSIFI 06/28/2019 LESLIE VO N MAMMOGRAPHY TECHNICIAN Ot N32. 89 OTHER SPECIFIED DISORDERS OF BLADDER 06/28/2019 LESLIE VO MAMMOGRAPHY TECHNICIAN Ot S32.9XXD FX UNSP PARTS OF LUMBOSACR SPIN PELV, Procedures There is no data. Results Test Result Range Complete blood count (CBC) with automate d white blood cell (WBC) differential - 01/24/19 03:45 Blood leukocytes automated count (number/volume) 2.0 10*3/uL 4.3-11.0 Blood erythrocytes automated count (number/volume) 3.26 10*6/uL 4.35-5.85 Venous blood hemoglobin measurement (mass/volume) 8.2 g/dL 11.5-16.0 Blood hematocrit (volume fraction) 27 % 35-52 Automated erythrocyte mean corpuscular volume 82 [ foz_us] 80-99 Automated erythrocyte mean corpuscular h emoglobin (mass per erythrocyte) 25 pg 25-34 Automated erythrocyte mean corpuscular h emoglobin concentration measurement (mass/volume) 31 g/dL 32-36 Automated erythrocyte distribution width ratio 16. 4 % 10.0- 14.5 Automated blood platelet count (count/volume) 245 10*3/uL 130-400 Automated blood platelet mean volume measurement 11.0 [foz_us] 7.4-10.4 Automated blood neutrophils/100 leukocytes 1 % 42-75 Automated blood lymphocytes/100 leukocytes 45 % 12-44 Blood monocytes/100 leukocytes 50 % 0-12 Automated blood eosinophils/100 leukocytes 1 % 0-10 Automated blood basophils/100 leukocytes 1 % 0-10 Blood neutrophils automated count (number/volume) 0.0 10*3 1.8-7.8 Blood lymphocytes automated count (number/volume) 0.9 10*3 1.0-4.0 Blood monocytes automated count (number/volume) 1. 0 10*3 0.0-1.0 Automated eosinophil count 0.0 10*3/uL 0 .0-0.3 Automated blood basophil count (count/volume) 0.0 10*3/uL 0.0-0.1 PT panel in platelet poor plasma by coag ulation assay - 01/24/19 03:45 Prothrombin time (PT) in platelet poor plasma by coagu lation assay 24.3 s 12.2-14.7 INR in platelet poor plasma or blood by coagulation as say 2.2 0.8-1.4 Activated partial thromboplastin time (a PTT) in platelet poor plasma bycoagulation assay - 01/24/19 03:45 Activated partial thromboplastin time (a PTT) in platelet poor plasma bycoagulation assay 55 s 24-35 Blood lactic acid measurement (moles/vol ume) - 01/24/19 03:45 Blood lactic acid measurement (moles/volume) 0.60 mmol/L 0.50-2.00 Comprehensive metabolic panel - 01/24/19 03:45 Serum or plasma sodium measurement (moles/volume) 138 mmol/L 135-145 Serum or plasma potassium measurement (moles/volume) 3.8 mmol/L 3.6-5.0 Serum or plasma chloride measurement (moles/volume) 93 mmol/L 98-107 Carbon dioxide 25 mmol/L 21-32 Serum or plasma anion gap determination (moles/volume) 20 mmol/L 5-14 Serum or plasma urea nitrogen measurement (mass/volume ) 37 mg/dL 7-18 Serum or plasma creatinine measurement (mass/volume) 2.53 mg/dL 0.60-1.30 Serum or plasma urea nitrogen/creatinine mass ratio 15 NRG Serum or plasma creatinine measurement w ith calculation of estimated glomerular filtration rate 19 NRG Serum or plasma glucose measurement (mass/volume) 209 mg/dL 70-105 Serum or plasma calcium measurement (mass/volume) 9.2 mg/dL 8.5-10.1 Serum or plasma total bilirubin measurement (mass/volu me) 0.3 mg/dL 0.1-1.0 Serum or plasma alkaline phosphatase kesha surement (enzymatic activity/volume) 98 U/L 40-136 Serum or plasma aspartate aminotransfera se measurement (enzymatic activity/volume) 17 U/L 5-34 Serum or plasma alanine aminotransferase measurement (enzymatic activity/volume) 12 U/L 0-55 Serum or plasma protein measurement (mass/volume) 6.9 g/dL 6.4-8.2 Serum or plasma albumin measurement (mass/volume) 3.3 g/dL 3.2-4.5 CALCIUM CORRECTED 9.8 mg/dL 8.5-10.1 TROPONIN T - 01/24/19 03:45 TROPONIN T 20 % <=10 PROBNP FS - 01/24/19 03:45 PROBNP FS 5601.0 pg/mL <75.0 Blood manual differential performed dete ction - 01/24/19 03:45 Blood monocytes/100 leukocytes 49 % NRG Manual blood segmented neutrophils/100 leukocytes 0 % NRG Blood band neutrophils/100 leukocytes 1 % NRG Manual blood lymphocytes/100 leukocytes 32 % NRG Manual eosinophils/100 leukocytes in nose 5 % NRG Manual blood basophils/100 leukocytes 2 % NRG Manual blood lymphocytes variant/100 leukocytes 8 % NRG Blood anisocytosis detection by light microscopy S LIGHT NRG Manual blood metamyelocytes/100 leukocytes 1 % NRG Manual blood myelocytes/100 leukocytes 2 % NRG Bacterial blood culture - 01/24/19 03:45 Bacterial blood culture NG NRG Bacterial blood culture - 01/24/19 04:20 Bacterial blood culture NG NRG Complete urinalysis with reflex to cultu re - 01/24/19 06:00 Urine color determination YELLOW NRG Urine clarity determination CLEAR NR G Urine pH measurement by test strip 7.5 5-9 Specific gravity of urine by test strip 1.010 1.016-1.022 Urine protein assay by test strip, semi-quantitative 1+ NEGATIVE Urine glucose detection by automated test strip 1+ NEGATIVE Erythrocytes detection in urine sediment by light micr oscopy 1+ NEGATIVE Urine ketones detection by automated test strip NE GATIVE NEGATIVE Urine nitrite detection by test strip NEGATIVE NEGATIVE Urine total bilirubin detection by test strip NEGA TIVE NEGATIVE Urine urobilinogen measurement by automated test strip (mass/volume) 0.2 mg/dL NORMAL Urine leukocyte esterase detection by dipstick NEG ATIVE NEGATIVE Automated urine sediment erythrocyte cou nt by microscopy (number/high power field) [HPF] NRG Automated urine sediment leukocyte count by microscopy (number/high power field) NONE NRG Bacteria detection in urine sediment by light microsco py NEGATIVE NRG Squamous epithelial cells detection in u rine sediment by light microscopy 0-2 NRG Crystals detection in urine sediment by light microsco py NONE NRG Casts detection in urine sediment by light microscopy NONE NRG Mucus detection in urine sediment by light microscopy NONE NRG Complete urinalysis with reflex to culture NO NRG Bacterial urine culture - 01/24/19 06:00 Bacterial urine culture NG NRG Complete blood count (CBC) with automate d white blood cell (WBC) differential - 02/28/19 19:37 Blood leukocytes automated count (number/volume) 8.3 10*3/uL 4.3-11.0 Blood erythrocytes automated count (number/volume) 2.90 10*6/uL 4.35-5.85 Venous blood hemoglobin measurement (mass/volume) 7.5 g/dL 11.5-16.0 Blood hematocrit (volume fraction) 24 % 35-52 Automated erythrocyte mean corpuscular volume 84 [ foz_us] 80-99 Automated erythrocyte mean corpuscular h emoglobin (mass per erythrocyte) 26 pg 25-34 Automated erythrocyte mean corpuscular h emoglobin concentration measurement (mass/volume) 31 g/dL 32-36 Automated erythrocyte distribution width ratio 18. 1 % 10.0- 14.5 Automated blood platelet count (count/volume) 131 10*3/uL 130-400 Automated blood platelet mean volume measurement 11.4 [foz_us] 7.4-10.4 Automated blood neutrophils/100 leukocytes 62 % 42-75 Automated blood lymphocytes/100 leukocytes 24 % 12-44 Blood monocytes/100 leukocytes 11 % 0-12 Automated blood eosinophils/100 leukocytes 2 % 0-10 Automated blood basophils/100 leukocytes 0 % 0-10 Blood neutrophils automated count (number/volume) 5.2 10*3 1.8-7.8 Blood lymphocytes automated count (number/volume) 2.0 10*3 1.0-4.0 Blood monocytes automated count (number/volume) 0. 9 10*3 0.0-1.0 Automated eosinophil count 0.2 10*3/uL 0 .0-0.3 Automated blood basophil count (count/volume) 0.0 10*3/uL 0.0-0.1 Fibrin D-dimer FEU measurement in platel et poor plasma (mass/volume) - 02/28/19 19:37 Fibrin D-dimer FEU measurement in platelet poor plasma (mass/volume) 0.69 ug/mL 0.00-0.49 PROBNP FS - 02/28/19 19:37 PROBNP FS 1282.0 pg/mL <75.0 Comprehensive metabolic panel - 02/28/19 19:37 Serum or plasma sodium measurement (moles/volume) 142 mmol/L 135-145 Serum or plasma potassium measurement (moles/volume) 3.1 mmol/L 3.6-5.0 Serum or plasma chloride measurement (moles/volume) 96 mmol/L 98-107 Carbon dioxide 29 mmol/L 21-32 Serum or plasma anion gap determination (moles/volume) 17 mmol/L 5-14 Serum or plasma urea nitrogen measurement (mass/volume ) 49 mg/dL 7-18 Serum or plasma creatinine measurement (mass/volume) 1.65 mg/dL 0.60-1.30 Serum or plasma urea nitrogen/creatinine mass ratio 30 NRG Serum or plasma creatinine measurement w ith calculation of estimated glomerular filtration rate 31 NRG Serum or plasma glucose measurement (mass/volume) 155 mg/dL 70-105 Serum or plasma calcium measurement (mass/volume) 8.7 mg/dL 8.5-10.1 Serum or plasma total bilirubin measurement (mass/volu me) 0.3 mg/dL 0.1-1.0 Serum or plasma alkaline phosphatase kesha surement (enzymatic activity/volume) 81 U/L 40-136 Serum or plasma aspartate aminotransfera se measurement (enzymatic activity/volume) 23 U/L 5-34 Serum or plasma alanine aminotransferase measurement (enzymatic activity/volume) 12 U/L 0-55 Serum or plasma protein measurement (mass/volume) 6.7 g/dL 6.4-8.2 Serum or plasma albumin measurement (mass/volume) 3.7 g/dL 3.2-4.5 CALCIUM CORRECTED 8.9 mg/dL 8.5-10.1 Magnesium - 02/28/19 19:37 Magnesium 2.0 mg/dL 1.8-2.4 TROPONIN T - 02/28/19 19:37 TROPONIN T 13 % <=10 TROPONIN T - 02/28/19 19:37 TROPONIN T 13 % <=10 Complete urinalysis with reflex to cultu re - 02/28/19 20:20 Urine color determination YELLOW NRG Urine clarity determination CLEAR NR G Urine pH measurement by test strip 6.5 5-9 Specific gravity of urine by test strip < 1.016-1.022 Urine protein assay by test strip, semi-quantitative NEGATIVE NEGATIVE Urine glucose detection by automated test strip NE GATIVE NEGATIVE Erythrocytes detection in urine sediment by light micr oscopy TRACE NEGATIVE Urine ketones detection by automated test strip NE GATIVE NEGATIVE Urine nitrite detection by test strip NEGATIVE NEGATIVE Urine total bilirubin detection by test strip NEGA TIVE NEGATIVE Urine urobilinogen measurement by automated test strip (mass/volume) 0.2 mg/dL NORMAL Urine leukocyte esterase detection by dipstick NEG ATIVE NEGATIVE Automated urine sediment erythrocyte cou nt by microscopy (number/high power field) NONE NRG Automated urine sediment leukocyte count by microscopy (number/high power field) NONE NRG Bacteria detection in urine sediment by light microsco py NONE NRG Squamous epithelial cells detection in u rine sediment by light microscopy 0-2 NRG Crystals detection in urine sediment by light microsco py NONE NRG Casts detection in urine sediment by light microscopy PRESENT NRG Mucus detection in urine sediment by light microscopy NEGATIVE NRG Complete urinalysis with reflex to culture CULTURE PENDING NRG Hyaline casts detection in urine sediment by light lucas roscopy 0-2 NRG Bacterial urine culture - 02/28/19 20:20 Bacterial urine culture [id number] NRG COLONY COUNT <10,000 NRG FTX;REPORTABLE NO FURTHER TESTING NRG FREE TEXT ENTRY 2 ORGANISM ID REPORT RCD 03/02 14:0 5 NRG FREE TEXT ENTRY 3 SEE COMMENTS NRG Encounters ACCT No. Visit Date/Time Discharge Status Pt. Type Provider Facility Loc./Unit Complaint [id number] 06/21/2019 12:36:00 23:59:59 CLS Outpatient LESLIE VO APRN [facility] RAD FS CALCULUS OF KIDNEY [id number] 02/28/2019 18:29:00 019 22:56:00 DIS Emergency GLO COREY MD [facility] ER FS DIZZINESS/SOB/WEAKNESS [id number] 01/24/2019 03:34:00 019 07:30:00 DIS Emergency VERONIKA LEWIS DO [facility] ER FS RAPID HR LOW O2 [id number] 02/20/2020 14:03:[address] Emergency BRIE MORRELL DO [facility] ER FS VOMITING; DIARRHEA; LEG CRAM PS
[2020-02-20 14:51] LABS: BASOPHILS % (AUTO) 1 % (0-10); EOSINOPHILS % (AUTO) 1 % (0-10); HEMATOCRIT 40 % (35-52); HEMOGLOBIN 12.6 G/DL (11.5-16.0); LYMPHOCYTES % (AUTO) 28 % (12-44); MEAN CORPUSCULAR HEMOGLOBIN 25 PG (25-34); MEAN CORPUSCULAR HGB CONC 31 G/DL (32-36); MEAN CORPUSCULAR VOLUME 80 FL (80-99); MEAN PLATELET VOLUME 10.7 FL (7.4-10.4); MONOCYTES % (AUTO) 12 % (0-12); NEUTROPHILS % (AUTO) 59 % (42-75); PLATELET COUNT 140 10^3/uL (130-400); RED CELL DISTRIBUTION WIDTH 16.3 % (10.0-14.5); WHITE BLOOD COUNT 13.8 10^3/uL (4.3-11.0)
[2020-02-20 14:52] LABS: BASOPHILS # (AUTO) 0.1 10^3/uL (0.0-0.1); EOSINOPHILS # (AUTO) 0.1 10^3/uL (0.0-0.3); LYMPHOCYTES # (AUTO) 3.9 X 10^3 (1.0-4.0); MONOCYTES # (AUTO) 1.6 X 10^3 (0.0-1.0); NEUTROPHILS # (AUTO) 8.1 X 10^3 (1.8-7.8)
[2020-02-20 14:57] LABS: CLARITY,URINE CLEAR; COLOR,URINE YELLOW
[2020-02-20 14:58] LABS: AMORPHOUS SEDIMENT,UR MOD AMOR URATES /LPF; BILIRUBIN,URINE NEGATIVE (NEGATIVE); GLUCOSE, URINE (UA) NEGATIVE (NEGATIVE); KETONES,URINE NEGATIVE (NEGATIVE); LEUKOCYTE ESTERASE ,URINE NEGATIVE (NEGATIVE); NITRITE,URINE NEGATIVE (NEGATIVE); PROTEIN,URINE 2+ (NEGATIVE); WBC,URINE RARE /HPF
[2020-02-20 15:00] LABS: INR 2.8 (0.8-1.4); PROTHROMBIN TIME PATIENT 30.7 SEC (12.2-14.7)
[2020-02-20 15:06] LABS: SODIUM 140 MMOL/L (135-145)
[2020-02-20 15:07] LABS: BILIRUBIN,TOTAL 0.4 MG/DL (0.1-1.0); BUN/CREATININE RATIO 12; CARBON DIOXIDE 15 MMOL/L (21-32); CHLORIDE 107 MMOL/L (98-107); CREATININE SERUM 3.63 MG/DL (0.60-1.30); GFR ESTIMATED 12; GLUCOSE 161 MG/DL (70-105); POTASSIUM 8.2 MMOL/L (3.6-5.0)
[2020-02-20 15:08] LABS: ALANINE AMINOTRANSFERASE 30 U/L (0-55); ALBUMIN 3.8 GM/DL (3.2-4.5); ALKALINE PHOSPHATASE 98 U/L (40-136); TOTAL PROTEIN 7.2 GM/DL (6.4-8.2)
[2020-02-20 15:09] LABS: CALCIUM 8.8 MG/DL (8.5-10.1)
[2020-02-20] MEDS ORDERED: RT-ALBUTEROL/IPRATROPIUM 3 ML (DUONEB) VIAL ONE (15:10)
[2020-02-20] MEDS ORDERED: SODIUM BICARB 8.4% 50 MEQ/50 ML (ABBOTT) SYR ONE (15:11)
[2020-02-20] MEDS ORDERED: inSUlin (REGULAR) HUMAN 1 UNIT/0.01 ML (CHARGE PER UNIT) SC ONE (15:15)
[2020-02-20] MEDS ORDERED: DEXTROSE 50% 50 ML (IMS) SYR IV ONE (15:15)
[2020-02-20] MEDS ORDERED: D5 1/2 NS 1000 ML IV SOLUTION 1,000 ML IV SCH (15:15)
[2020-02-20] MEDS ORDERED: CALCIUM CHLORIDE 1 GM/10 ML (IMS) SYR INJ ONE (15:15)
--- NOTE | 2020-02-20 15:28 | Diagnostic Imaging Report ---
INDICATION: Abdominal pain and diarrhea. TIME OF EXAM: 3:03 PM FINDINGS: Images of the chest demonstrate a right-sided chest wall port with tip overlying the SVC. The heart is enlarged. There appears to be minimal infiltrate or atelectasis in both lung bases. Costophrenic angles demonstrate some blunting as well and a small amount of pleural fluid cannot be entirely excluded. No free air is identified. Bowel gas pattern appears to be nonobstructed. There are ovoid opacities in the left lower quadrant and midline pelvis which may represent recently ingested pills. Unhealed comminuted fracture of the right pubic body is seen, similar to the CT examination from 06/21/2019. No pathologic calcifications are seen. IMPRESSION: 1. No acute feature in the abdomen is identified. 2. There appears to be minimal patchy bibasilar infiltrates or atelectasis and perhaps trace bilateral effusions. Dictated by: Dictated on workstation # [id number]
--- NOTE | 2020-02-20 15:35 | NUR ---
Leon out to parking lot to speak with pts and update given.
[2020-02-20 15:43] LABS: ABG BASE EXCESS -5.9 MMOL/L (-2.5-2.5); ABG OXYGEN SATURATION 82 % (94-100); ABG PCO2 49 MMHG (35-45); ABG PH 7.25 (7.37-7.43); ABG PO2 55 MMHG (79-93); ALLENS TEST YES-POS; INSPIRED O2 10L; PATIENT TEMP 33.7; VENTILATOR NO
--- NOTE | 2020-02-20 15:45 | NUR ---
Report given to Flight crew
--- NOTE | 2020-02-20 16:00 | NUR ---
1405- Pt connected to filler spreader and vital signs obtained. Pt presents with HR of 21 bpm. 1408-IV 18 ga started left A/C and NS started wide open 500 ml bolus. Crash cart immediately retreived and quick combo pads applied. NRB mask applied at 15 lpm. Pt's infusaport accessed by Adan Aguilar RN. Verbal orders recieved per Dr. Leon 1415- Atropine 0.5 mg IVP given 1420- Transcutaneous Pacing initiated. Capture at 80 bpm, 140 mA 1428- Calcium Chloride 1 gram IVP 1429- Sodium Bicarb 1 amp, 50 mEq IVP 1430- Fentanyl 25 mcg IVP 1435- Ativan 0.5 mg IVP 1440- Roberson 16 f placed 1445- Pacer stopped 1448- Sodium Bicarb 1 amp, 50 mEq IVP 1449- Calcuim Chloride 1 gram IVP 1500- Pt taken to xray 1511- Pt brought back from xray with symptomatic bradycardia at rate in 30's. 1514- Epi 1 mg IVP 1515- Heart rate converted back to afib at a rate of 61 1517- D50 IVP 1518- 10 units Insulin Regular 1518- Sodium Bicarb 1 amp, 50 mEq 1520- Duo neb albuterol treatment administered.
[2020-02-20 16:13] VITALS: BP 111/43
--- NOTE | 2020-02-20 16:13 | NUR ---
Flight crew left with pt
--- NOTE | 2020-02-20 16:23 | NUR ---
Report called to MATIAS Ruiz at [facility].
== END 2020-02-20 16:13 | disposition short-term general hospital (02) ==
LOC: EDUNIT# 13:59 → ER FS 14:03
DX: E87.5 Hyperkalemia (principal); R00.1 Bradycardia, unspecified; R11.2 Nausea with vomiting, unspecified; I48.91 Unspecified atrial fibrillation; Z85.3 Personal history of malignant neoplasm of breast; Z90.10 Acquired absence of unspecified breast and nipple; I50.9 Heart failure, unspecified
CPT/HCPCS: 36415; 74022; 80053; 81000; 82805; 82962; 83605; 84484; 85025; 85610; 85730; 87040; 87088

== ENCOUNTER → 2021-04-16 | Outpatient (CLI) | payer MEDICARE, OTHER | LOC: LAB FS 10:10 | PROVIDERS: ATTEND Internal Medicine Cardiovascular Disease | DX: Z01.812 Encounter for preprocedural laboratory examination (principal); Z20.822 Contact with and (suspected) exposure to COVID-19 | CPT/HCPCS: 87635 ==

== ENCOUNTER → 2022-08-08 | Outpatient (CLI) | payer MEDICARE, OTHER ==
--- NOTE | 2022-08-08 17:06 | Diagnostic Imaging Report ---
PROCEDURE: US carotid duplex, bilateral. TECHNIQUE: Multiple real-time grayscale images were obtained over the carotid arteries in various projections, bilaterally. Additional spectral analysis and color Doppler duplex images were also obtained. INDICATION: Carotid stenosis Bruce scale images show some atherosclerotic plaque at both carotid bifurcations. There is no significant alteration of waveforms or velocities at either carotid bifurcation. Both vertebral arteries have antegrade flow. IMPRESSION: Mild atherosclerotic change of the carotid bifurcations. There is no hemodynamically significant stenosis. Parameters based on the consensus panel Bruce-Scale and Doppler ultrasound criteria published September 2003, Radiology, Volume 229. DOPPLER (peak systolic velocity M/S Right Left CCA 0.70 0.72 ICA Proximal 0.42 0.66 ICA Mid 0.56 0.61 ICA Distal 0.55 0.68 RATIO 0.79 0.95 ECA 0.45 0.53 VERT 0.28 0.45 Dictated by: Dictated on workstation # [id number]
== END ==
LOC: RAD 14:22
PROVIDERS: ATTEND Internal Medicine Cardiovascular Disease
DX: I65.23 Occlusion and stenosis of bilateral carotid arteries (principal)
CPT/HCPCS: 93880

== ENCOUNTER → 2023-04-29 | Outpatient (CLI) | payer MEDICARE, OTHER ==
[~2023-04-29] MED LIST: CATHETER FLUSH 10 ML SYR IVP PRN; REGADENOSON 0.4 MG/5 ML SYR (LEXISCAN) IV ONE
[2023-04-29 08:55] VITALS: BP 132/76
--- NOTE | 2023-04-29 13:12 | Cardiology Stress Test Report ---
Stress Test Report Date of Procedure/Referring: Date of Procedure: Apr 29, 2023 PCP Chris Mitchell DO Admitting Physician Admitting Physician: Attending Physician: Genie Wynn MD Indications: CP Baseline Heart Rate: 67 Baseline Blood Pressure: Blood Pressure Systolic: 132 Blood Pressure Diastolic: 76 Baseline Vitals Vital Signs Date Time Temp Pulse Resp B/P (MAP) Pulse Ox O2 Delivery O2 Flow Rate FiO2 04/29/23 08:55 69 132/76 (94) Baseline EKG: Baseline EKG: NSR Summary After explaining the procedure to the patient, she signed a consent and then brought to the stress nuclear laboratory. Patient received 0.4 mg Lexiscan for stress test, ECG, heart rate and blood pressure were monitored continuously. Resting and stress dose of radio tracer were injected, imaging was acquired and reviewed in short axis, horizontal long axis and vertical long axis views. TID: 0.98 SSS: 6 SDS: 2 EF: 67 Patient tolerated Lexiscan well Fixed defect involving the apex and the base of the anterior wall, minimal ischemia at the inferior apical segment, probably due to extracardiac attenuation Normal left ventricular size, ejection fraction 67% Copy Copies To 1: CHRIS MITCHELL BASHAR J MD Apr 29, 2023 13:12
== END ==
LOC: CARD 07:12
PROVIDERS: ATTEND Internal Medicine Cardiovascular Disease
DX: I25.10 Atherosclerotic heart disease of native coronary artery without angina pectoris (principal); I10 Essential (primary) hypertension
CPT/HCPCS: 78452; 93017; A9502